=== PATIENT | female | born 2005 | race Caucasian/White ===

== ENCOUNTER 2025-05-11 23:30 | Emergency (ER) | payer MEDICAID ==
[~2025-05-11] VITALS: Ht 165.1 cm; Wt 62.3 kg
--- NOTE | 2025-05-12 00:20 | Physician Documentation ---
History of Present Illness ~ Chief Complaint: Flu Symptoms Stated Complaint: FEVER Time Seen by MD: 00:05 HPI Patient is seen today with complaints of fever, body aches, chills as well as cough and sore throat started just today, and patient was seen at urgent care and diagnosed with COVID-19.. Patient states she was diagnosed just recently with COVID and states she is concerned. Patient denies any shortness of breath or abdominal pain or chest pain or shortness as breath or nausea, vomiting, diarrhea. Patient has no other concern or complaint at this time. Review of Systems Constitutional: Denies: chills, fever, weakness Eyes: Denies: pain, blurred vision ENT: Denies: ear pain, nose pain, throat pain, mouth pain Respiratory: Denies: cough, shortness of breath Cardiovascular: Denies: chest pain, palpitations Gastrointestinal: Denies: abdominal pain, nausea, vomiting Genitourinary: Denies: burning, dysuria Female Genitalia: Denies: vaginal discharge, pelvic pain Neurological: Denies: headache, dizziness Musculoskeletal: Denies: pain, swelling Integumentary: Denies: rash, lesions Allergic/Immunologic: Denies: hives, itching Hematologic/Lymphatic: Denies: no symptoms reported Psychiatric: Denies: depression, anxiety Physical Exam Vital Signs: Temperature: 100.4, Source: Oral, Heart Rate: 115, Respiratory R ate: 16, BP: 106/75, Pulse Oximetry: 97, Weight: 62.270 Oxygen Flow Rate: 0 Physical Exam General: Awake and Alert, no acute distress. Patient is ill-appearing HEENT: Conjunctiva pink, Sclera clear, Mucus Membranes moist. Neck: Supple without masses and tenderness. Resp: Unlabored. Lungs clear to auscultation bilaterally. Heart: Regular Rate and rhythm, normal S1 and S2 without murmur, rub or gallop. Abdomen: Soft and non tender no organomegaly Extremities: No cyanosis,clubbing or edema. Skin: Warm and Dry. Progress Results/Orders Results/Orders Vital Signs 05/11/25 23:35 Temp 100.4 Pulse 115 Resp 16 B/P (MAP) 106/75 Pulse Ox 97 O2 Flow Rate 0 Medical Decision Making Findings Patient is seen today with complaints of fever, body aches, chills as well as cough and sore throat started just a few days ago. Patient states she was di agnosed just recently with COVID and states she is concerned. Patient denies any shortness of breath or abdominal pain or chest pain or shortness as breath or nausea, vomiting, diarrhea. Patient has no other concern or complaint at this time. Patient will continue with conservative management with increase rest and fluids and Tylenol and ibuprofen as needed for symptomatic relief. Patient will follow up with primary care in 3-5 days if no better as needed sooner. Return to ED with any worsening, concerning or changing symptoms. Departure Impression: Primary Impression: Viral infection Additional Impression: COVID Condition: Stable Discharge Instructions: Influenza, Adult Additional Instructions: Patient will continue with conservative management with increase rest and fluids and Tylenol and ibuprofen as needed for symptomatic relief. Patient will follow up with primary care in 3-5 days if no better as needed sooner. Return to ED with any worsening, concerning or changing symptoms. Referrals: NO PRIMARY CARE PROVIDER (PCP) Prescriptions Ibuprofen (Ibuprofen) 800 Mg Tablet 1 TAB PO Q8H for pain for 10 Days, #30 TAB 0 Refills Prov: JUAN ROSAS 05/12/25 Signature Scribe Signature: No scribe Attestation: No scribe JUAN ROSAS May 12, 2025 00:19
[2025-05-12] MEDS ORDERED: IBUP-1986 PO (00:22)
[2025-05-12 00:28] VITALS: BP 103/60; PULSE 82; RESP 18; TEMP 100.4; O2SAT 99
== END 2025-05-12 00:30 | disposition home or self-care (01) ==
LOC: ER 23:33
DX: U07.1 COVID-19 (principal)
CPT/HCPCS: 99282

== ENCOUNTER 2025-05-30 16:42 | Emergency (ER) | payer MEDICAID ==
[~2025-05-30] VITALS: Ht 165.1 cm; Wt 54.2 kg
[~2025-05-30 16:42] MED LIST: IBUP-1986 PO
[2025-05-30 16:47] VITALS: TEMP 97.7
--- NOTE | 2025-05-30 18:02 | Physician Documentation ---
History of Present Illness ~ Chief Complaint: See Chief Complaint Stated Complaint: STEPPED ON FISH HOOK Time Seen by MD: 17:52 Source: patient Mode of Arrival: POV Exam Limitations: no limitations HPI Patient presents after slipping on official with the right foot and needing a tetanus shot. She has no wounds or injury. No signs and symptoms of infection. Wound happened just prior to arrival. Tetanus within 5 years?: No Medication Reconciliation Allergies: Coded Allergies: No Known Allergies (Unverified , 05/30/25) Scheduled Ibuprofen (Ibuprofen), 1 TAB PO Q8H Past Medical History Last Menstrual Period: May 05, 2025 Review of Systems ROS Patient complains of sitting on a fish hook. There is no significant injury. Otherwise, no fevers, chills. Was asked, but otherwise denies review of systems . Physical Exam Vital Signs: RN Vital Signs have been reviewed: Yes, Temperature: 97.7, Source: Temporal, Heart Rate: 98, Respiratory Rate: 18, BP: 114/67, Pulse Oximetry: 98, Weight: 54.160 Pulse Oximetry Reflects: adequate oxygenation Physical Exam General: Awake, alert, oriented. No apparent distress Respiratory: Lungs are clear to auscultation bilaterally. No respiratory distress. Chest: Normal shape and size. No accessory muscle use. Cardiovascular: Regular rate and rhythm. S1-S2. No murmur, gallop, rub. Extremities: There is a small scratch to this again on her forearm. There is a very small non penetrating puncture wound that looks more like a dot on the skin. Patient had two pointed out to me. No surrounding erythema. No drainage. No warmth. Neurologic: Alert and oriented x4. Nonfocal Psychiatric: Normal mood and affect. Skin: Normal color. Warm and dry. Progress Results/Orders Results/Orders Completed Orders - CHAYA GOMEZ [employer] Tetanus/Pertuss/Diph Acell/Pf (Boostrix (05/30/25 18:00) Vital Signs 05/30/25 05/30/25 05/30/25 16:47 17:05 18:12 Temp 97.7 Pulse 98 87 Resp 16 18 17 B/P (MAP) 114/67 99/74 Pulse Ox 98 100 Medical Decision Making Findings Patient presents for a small into her foot needing a tetanus shot. She stepped on a donya fishhook in his unsure when her last tetanus shot was. No signs and symptoms of infection. The wound requiring wound care. She is otherwise well- appearing. Departure Time of Disposition: 17:59 Disposition: 01 HOME / SELF CARE / HOMELESS Impression: Primary Impression: fish hook injury toe Condition: Stable Additional Instructions: I do not see any wounds currently the require any treatment. Recommend that you wash any wounds that you obtain from aphasia with clean soapy water. You have been given a tetanus shot today. Return for any new or worsening symptoms. Referrals: NO PRIMARY CARE PROVIDER (PCP) Education Educated: Patient Educated regarding: diagnosis, treatment, prognosis, need for follow up Signature Scribe Signature: No scribe Attestation: The note accurately reflects work and decisions made by me.Chaya Del Toro NP 06/02/25 09:03 CHAYA GOMEZ NP May 30, 2025 18:01
[2025-05-30] MEDS: TETanus/Pertussis (Acell)/Diphther VAC/PF (Tdap-Adult) 0.5ml syringe IMVAC ONE (18:10)
[2025-05-30 18:12] VITALS: BP 99/74; PULSE 87; RESP 17; O2SAT 100
== END 2025-05-30 18:15 | disposition home or self-care (01) ==
LOC: ER 16:44
DX: S91.331A Puncture wound without foreign body, right foot, initial encounter (principal); Z79.899 Other long term (current) drug therapy; W45.8XXA Other foreign body or object entering through skin, initial encounter; Y93.89 Activity, other specified; Y92.89 Other specified places as the place of occurrence of the external cause; Y99.8 Other external cause status
CPT/HCPCS: 90471; 90715; 99283